=== PATIENT | male | born 1965 | race Caucasian/White ===

== ENCOUNTER 2016-07-22 21:33 | Emergency (ER) | payer OTHER ==
[2016-07-22 21:40] VITALS: BP 105/67; PULSE 72; TEMP 98; BMI 26.8
--- NOTE | 2016-07-22 23:38 | PDOC ---
History of Present Illness - History of Present Illness Initial Comments: 07/22/16 23:53 Patient is a 50 year old male with significant medical hx of HLD (diet controlled) and OH (13 yrs ago) who is presenting to the ED with a laceration to his left index finger. 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 He went to urgent care where they irrigated the wound, but the patient fainted due to pain and they were unable to complete the procedure. Patient received an x-ray while in urgent care and he states that nothing is broken. The patient is coming to the ED tonight to see if he needs stitches. <Bessie Kinsey - Last Filed: 07/23/16 00:06> <Neeraj Mazariegos - Last Filed: 07/23/16 00:49> - General Chief Complaint: Laceration Stated Complaint: LACERATION Time Seen by Provider: 07/22/16 23:37 Past History <Bessie Kinsey - Last Filed: 07/23/16 00:06> - Past Medical History Cardiac Disorders: Yes (OH) Hypercholesterolemia: Yes - Immunization History Immunization Up to Date: Yes - Psycho/Social/Smoking Cessation Hx Anxiety: No Suicidal Ideation: No Smoking History: Current every day smoker Have you smoked in the past 12 months: Yes Number of Cigarettes Smoked Daily: 20 Information on smoking cessation initiated: No 'Breaking Loose' booklet given: 09/01/13 Hx Alcohol Use: Yes Substance Use Type: None <Neeraj Mazariegos - Last Filed: 07/23/16 00:49> - Past Medical History Allergies/Adverse Reactions: Allergies Allergy/AdvReac Type Severity Reaction Status Date / Time No Known Allergies Allergy Verified 07/22/16 23:21 Home Medications: Ambulatory Orders Atorvastatin Ca [Lipitor] 20 mg PO HS 07/22/16 Cyclobenzaprine HCl [Flexeril 10 mg] 10 mg PO BID 07/22/16 Review of Systems - Review of Systems Comments:: 07/23/16 00:08 CONSTITUTIONAL: No fever, no chills, no fatigue EYES: No visual changes ENT: No ear pain, no sore throat CARDIOVASCULAR: No chest pain, no palpitations RESPIRATORY: No cough, no SOB GI: No abdominal pain, no nausea, no vomiting, no constipation, no diarrhea GENITOURINARY: No dysuria, no frequency, no hematuria MUSKULOSKELETAL: No backpain, no joint pain, no myalgias SKIN: Left index finger laceration. No rash NEURO: No headache <Bessie Kinsey - Last Filed: 07/23/16 00:06> *Physical Exam - Vital Signs Last Vital Signs Temp Pulse Resp BP Pulse Ox 98 F 72 18 105/67 100 07/22/16 21:38 07/22/16 21:38 07/22/16 21:38 07/22/16 21:38 07/22/16 23:08 <Bessie Kinsey - Last Filed: 07/23/16 00:06> - Vital Signs Last Vital Signs Temp Pulse Resp BP Pulse Ox 98 F 72 18 105/67 100 07/22/16 21:38 07/22/16 21:38 07/22/16 21:38 07/22/16 21:38 07/22/16 23:08 - Physical Exam Comments: 07/23/16 00:44 EXAMINATION CONSTITUTIONAL: Well-appearing; well-nourished; in no apparent distress HEAD: Normocephalic; atraumatic EYES: PERRL; EOM intact EXT: Left hand: + Approximately 1 cm flap-like laceration to the dorsal lateral aspect of the DIP of the left index finger; 2 point discrimination is less than 5 mm distally; cap refill is less than 2 seconds; non-tender to palpation; distal pulses intact SKIN: Warm, dry, no rash NEURO: No focal neurological deficiencies. <Neeraj Mazariegos - Last Filed: 07/23/16 00:49> Procedures - Laceration/Wound Repair Left Upper Lateral Dorsal 2nd digit Wound Length: to 2.5 cm Wound Explored: clean Wound's Depth, Shape: superficial Irrigated w/ Saline: Yes Betadine Prep: Yes Anesthesia: 2% Lidocaine (digital block performed using 2.5 ml) Amount of Anesthetic (ccs): 2 Wound Debrided: minimal Wound Repaired With: Sutures Suture Size/Type: 3:0, other Number of Sutures: 4 Layer Closure: No Sterile Dressing Applied: Yes Splint Applied: Yes (finger splint) Sling Applied: Yes Progress: 07/23/16 00:48 patient tolerated procedure well <Neeraj Mazariegos - Last Filed: 07/23/16 00:49> *DC/Admit/Observation/Transfer - Attestations Scribe Attestion: 07/23/16 00:08 Documentation prepared by Bessie Kinsey, acting as medical office receptionist for Neeraj Mazariegos MD. <Bessie Kinsey - Last Filed: 07/23/16 00:06> <Neeraj Mazariegos - Last Filed: 07/23/16 00:49> Diagnosis at time of Disposition: Laceration of finger Qualifiers: Encounter type: initial encounter Finger: index finger Damage to nail status: without damage Foreign body presence: without foreign body Laterality: left Qualified Code(s): S61.211A - Laceration without foreign body of left index finger without damage to nail, initial encounter - Discharge Dispostion Disposition: HOME Condition at time of disposition: Stable - Referrals Referrals: Yesenia Eisenberg MD [Primary Care Provider] - - Patient Instructions Printed Discharge Instructions: DI for Laceration Repair Additional Instructions: remove stitches in 7 days. return for fever, sever pain
[2016-07-22] MEDS ORDERED: LIDOCAINE HCL 2% (20ML MULTI-DOSE VIAL) NR ONE (23:50)
== END 2016-07-23 01:19 | disposition home or self-care (01) ==
LOC: JER 21:33 → JERFT 21:33 → JER 07-23 01:19
PROC: 0HQGXZZ Repair Left Hand Skin, External Approach (ICD-10-PCS; principal; 2016-07-22)
PROC: 2W3KX1Z Immobilization of Left Finger using Splint (ICD-10-PCS; 2016-07-22)
DX: S61.211A Laceration without foreign body of left index finger without damage to nail, initial encounter (principal); W26.0XXA Contact with knife, initial encounter; Y93.89 Activity, other specified; Y92.89 Other specified places as the place of occurrence of the external cause
CPT/HCPCS: 99283-25